=== PATIENT | female | born 1955 ===

== ENCOUNTER 2016-04-16 13:07 | Outpatient (CLI) | payer MEDICARE ==
[2016-04-16 13:41] LABS: #Basophils 0.1 thou/uL (0.0-0.2); #Eosinphils 0.2 thou/uL (0.0-0.7); #Lymphocytes 2.3 thou/uL (1.20-3.40); #Monocytes 0.5 thou/uL (0.11-0.59); %Basophils 1.1 % (0.0-1.0); %Eosinophils 2.5 % (0.0-10.0); %Monocytes 6.4 % (0.0-10.0); Hematocrit 47.2 % (36.0-47.0); Mean Platelet Volume 7.3 fL (7.4-10.4); Red Blood Cell (RBC) Count 5.29 mill/uL (4.20-5.40)
[2016-04-16 13:47] LABS: ALT (SGPT) 22 U/L (0-55); AST (SGOT) 13 U/L (5-34); Alkaline Phosphatase 109 U/L (40-150); Anion Gap 17 mmol/L (10-20); BUN (Urea Nitrogen) 31 mg/dL (9.8-20.1); Bilirubin, Total 0.5 mg/dL (0.2-1.2); Calc. Creatinine Clearance 0 mL/min (70-130); Calcium 9.8 mg/dL (7.8-10.44); Carbon Dioxide 27 mmol/L (22-29); Chloride 101 mmol/L (98-107); Estimated GFR-MDRD 58; Globulin 2.8 g/dL (2.4-3.5); LDL Cholesterol, Calculated 200 mg/dL; Protein, Total 7.2 g/dL (6.0-8.3)
[2016-04-16 13:53] LABS: Hemoglobin A1c 10.4 % (4.0-6.0)
[2016-04-16 18:23] LABS: Free T3 2.12 pg/mL (1.71-3.71)
== END 2016-04-16 13:08 ==
LOC: HPCALD 13:07
PROVIDERS: ATTEND Family Medicine
DX: E11.9 Type 2 diabetes mellitus without complications (principal); I10 Essential (primary) hypertension; E78.00 Pure hypercholesterolemia, unspecified
CPT/HCPCS: 36415; 80053; 80061; 83036; 84439; 84443; 84481; 85025; 86141